=== PATIENT | female | born 2000 | race Caucasian/White ===

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

== ENCOUNTER 2021-01-11 20:40 | Emergency (ER) | payer OTHER ==
--- NOTE | 2021-01-11 21:26 | EDM.PDOC ---
ED HPI GENERAL MEDICAL PROBLEM - General Chief Complaint: General Stated Complaint: COUGH, RUNNY NOSE, EYES SWELLING Time Seen by Provider: 01/11/21 20:45 Source of Information: Reports: Patient History Limitations: Reports: No Limitations - History of Present Illness INITIAL COMMENTS - FREE TEXT/NARRATIVE: HISTORY AND PHYSICAL: History of present illness: Patient is a 21-year-old female who presents to the ED today with concern of itchy watery eyes, nasal congestion and runny nose which is on the back of her throat causing her to cough x3 days. Patient states that she also has had intermittent eyelid swelling and states that when she woke up this morning, she could not fully open her eyes because they were swollen. Patient states she took a dose of Benadryl and within 45 minutes, her eyes went back to normal. Patient states she took a nap when she woke up they were swollen again, so she took another dose of Benadryl and her eyelids went back down. Patient states that Benadryl has been improving her symptoms. Patient denies any swelling of her tongue, lips, or throat. Patient denies fever, chills, chest pain, shortness of breath. Denies headache, neck stiff ness, change in vision, syncope, or near syncope. Denies nausea, vomiting, abdominal pain, diarrhea, constipation, or dysuria. Has not noted any blood in urine or stool. Patient has been eating and drinking appropriately. Review of systems: As per history of present illness and below otherwise all systems reviewed and negative. Past medical history: As per history of present illness and as reviewed below otherwise noncontributory. Surgical history: As per history of present illness and as reviewed below otherwise noncontributory. Social history: See social history for further information Family history: As per history of present illness and as reviewed below otherwise noncontributory. Physical exam: General: Patient is alert, oriented, and in no acute distress. Patient sitting on exam table, quite tearful on exam. Vitals stable and reviewed by me. HEENT: Bilateral clear nasal drainage. No lip edema, tongue edema, or oropharyngeal edema. No stridor. Otherwise, Atraumatic, normocephalic, pupils equal and reactive bilaterally, negative for conjunctival pallor or scleral icterus, mucous membranes moist, TMs normal bilaterally, throat clear with noted postnasal drainage, uvula midline, neck supple, nontender, trachea midline. No drooling or trismus noted. No meningeal signs. No hot potato voice noted. Lungs: Clear to auscultation, breath sounds equal bilaterally, chest nontender. Heart: S1S2, regular rate and rhythm without overt murmur Abdomen: Soft, nondistended, nontender. Negative for masses or hepatosplenomegaly. Negative for costovertebral tenderness. Pelvis: Stable nontender. Genitourinary: Deferred. Rectal: Deferred. Skin: Intact, warm, dry. No lesions or rashes noted. Extremities: Atraumatic, negative for cords or calf pain. Neurovascular unremarkable. Neuro: Awake, alert, oriented. Cranial nerves II through XII unremarkable. Cerebellum unremarkable. Motor and sensory unremarkable throughout. Exam nonfocal. Notes: On exam, patient is quite tearful which is out of proportion for her stated complaints. She does have bilateral clear nasal drainage, and postnasal drip, and HPI consistent with allergic reaction; as symptoms improved with Benadryl. She is not having any lip edema, tongue edema, oropharyngeal edema, or stridor. After lengthy conversation with patient, she states that she has health anxiety so when she began having symptoms she felt really anxious which is why she is crying. Signs and symptoms that would prompt return to the ED thoroughly discussed with patient. Discussed importance for follow-up with her primary care provider. Voices understanding and is agreeable to plan of care. Denies any further questions or concerns at this time. Diagnostics: None Therapeutics: None Prescription: Medrol dose pack Impression: Allergic reaction Plan: 1. Avoid triggers. Continue to monitor for possible exposures/triggers/foods. 2. While symptomatic continue to routinely take Benadryl 50mg every 4-6 hours and Zantac 150mg twice daily. Take the Medrol dose pack as prescribed. 3. Please follow up with your Primary care provider as discussed. Return to the ED as needed and as discussed. Definitive disposition and diagnosis as appropriate pending reevaluation and review of above. eye Pain Score (Numeric/FACES): 3 - Related Data Allergies Allergy/AdvReac Type Severity Reaction Status Date / Time No Known Allergies Allergy Verified 01/11/21 20:48 Past Medical History Musculoskeletal History: Reports: Fracture - Infectious Disease History Infectious Disease History: Reports: None - Past Surgical History Cardiovascular Surgical History: Reports: Other (See Below) Other Cardiovascular Surgeries/Procedures: "murmur" open heart surgery at 1 month of age Social & Family History - Family History Family Medical History: No Pertinent Family History - Caffeine Use Caffeine Use: Reports: Coffee - Recreational Drug Use Recreational Drug Use: No ED ROS GENERAL - Review of Systems Review Of Systems: Comprehensive ROS is negative, except as noted in HPI. ED EXAM, GENERAL - Physical Exam Exam: See Below (see dictation) Course - Vital Signs Last Recorded V/S: Last Vital Signs Temp 98.0 F 01/11/21 20:49 Pulse 104 H 01/11/21 20:49 Resp 18 01/11/21 20:49 BP 141/74 H 01/11/21 20:49 Pulse Ox 97 01/11/21 20:49 Departure - Departure Time of Disposition: 21:17 Disposition: Home, Self-Care 01 Clinical Impression: Allergic reaction Qualifiers: Encounter type: initial encounter Qualified Code(s): T78.40XA - Allergy, unspecified, initial encounter - Discharge Information Referrals: PCP,None [Primary Care Provider] - Additional Instructions: The following information is given to patients seen in the emergency department who are being discharged to home. This information is to outline your options for follow-up care. We provide all patients seen in our emergency department with a follow-up referral. The need for follow-up, as well as the timing and circumstances, are variable depending upon the specifics of your emergency department visit. If you don't have a primary care physician on staff, we will provide you with a referral. We always advise you to contact your personal physician following an emergency department visit to inform them of the circumstance of the visit and for follow-up with them and/or the need for any referrals to a consulting specialist. The emergency department will also refer you to a specialist when appropriate. This referral assures that you have the opportunity for follow-up care with a specialist. All of these measure are taken in an effort to provide you with optimal care, which includes your follow-up. Under all circumstances we always encourage you to contact your private physician who remains a resource for coordinating your care. When calling for follow-up care, please make the office aware that this follow-up is from your recent emergency room visit. If for any reason you are refused follow-up, please contact the [facility] Emergency Department at and asked to speak to the emergency department charge nurse. [place] [facility] [address] [place] [address] [facility] [address] [place] [address] 1. Avoid triggers. Continue to monitor for possible exposures/triggers/foods. 2. While symptomatic continue to routinely take Benadryl 50mg every 4-6 hours and Zantac 150mg twice daily. Take the Medrol dose pack as prescribed. 3. Please follow up with your Primary care provider as discussed. Return to the ED as needed and as discussed. Sepsis Event Note (ED) - Evaluation Sepsis Screening Result: No Definite Risk - Focused Exam Vital Signs: Vital Signs Temp Pulse Resp BP Pulse Ox 01/11/21 20:49 98.0 F 104 H 18 141/74 H 97
[2021-01-11 21:52] VITALS: BP 126/67; PULSE 73
== END 2021-01-11 21:58 | disposition home or self-care (01) ==
LOC: MW.ED 20:40
DX: T78.40XA Allergy, unspecified, initial encounter (principal)
CPT/HCPCS: 99282; 99283

== ENCOUNTER 2021-05-17 09:05 | Emergency (ER) | payer OTHER ==
--- NOTE | 2021-05-17 09:07 | EDM.PDOC ---
ED HPI GENERAL MEDICAL PROBLEM - General Stated Complaint: RT ANKLE HURTT Time Seen by Provider: 05/17/21 09:05 Source of Information: Reports: Patient History Limitations: Reports: No Limitations - History of Present Illness INITIAL COMMENTS - FREE TEXT/NARRATIVE: 21-year-old female no past medical history presents for right ankle injury. Patient was walking when she sustained an inversion injury of the right ankle in a hole in the ground. Patient notes that she was intoxicated. She is noting pain in the dorsum of the ankle that is worse with range of motion and bearing weight. She was able to walk a few steps but notes a lot of pain with ambulation. She denies hitting her head or head injury. She denies loss of consciousness. She denies any other injuries. She notes bruising to the an terior ankle. Right Ankle Pain Score (Numeric/FACES): 6 - Related Data Allergies Allergy/AdvReac Type Severity Reaction Status Date / Time No Known Allergies Allergy Verified 01/11/21 20:48 Home Meds: Home Meds methylPREDNISolone [Medrol Dose Pack] 84 mg PO ASDIRECTED #1 dospk 01/11/21 [Rx] Past Medical History Musculoskeletal History: Reports: Fracture - Infectious Disease History Infectious Disease History: Reports: None - Past Surgical History Cardiovascular Surgical History: Reports: Other (See Below) Other Cardiovascular Surgeries/Procedures: "murmur" open heart surgery at 1 month of age Social & Family History - Family History Family Medical History: No Pertinent Family History - Caffeine Use Caffeine Use: Reports: Coffee ED ROS GENERAL - Review of Systems Review Of Systems: Comprehensive ROS is negative, except as noted in HPI. ED EXAM, GENERAL - Physical Exam Exam: See Below Exam Limited By: No Limitations General Appearance: Alert, WD/WN, No Apparent Distress Ears: Hearing Grossly Normal Throat/Mouth: Normal Voice, No Airway Compromise Head: Atraumatic, Normocephalic Neck: Normal Inspection Respiratory/Chest: No Respiratory Distress, Lungs Clear, Normal Breath Sounds, No Accessory Muscle Use Cardiovascular: Normal Peripheral Pulses, Regular Rate, Rhythm Extremities: Other (Ecchymosis and mild swelling to dorsum anterior ankle. Positive tenderness to palpation. No metatarsal tenderness to palpation. No medial or lateral malleolus tenderness palpation. No distal tibial tenderness to palpation. Pain with active and passive range of motion of the ankle.) Neurological: Alert, Normal Cognition Psychiatric: Normal Affect, Normal Mood Skin Exam: Warm, Dry, Intact, Normal Color Course - Vital Signs Last Recorded V/S: Last Vital Signs Temp 98.3 F 05/17/21 09:16 Pulse 76 05/17/21 09:16 Resp 16 05/17/21 09:16 BP 124/78 05/17/21 09:16 Pulse Ox 98 05/17/21 09:16 - Orders/Labs/Meds Orders: Active Orders 24 hr Category Date Time Status Tani Bandage [RC] ONETIME Care 05/17/21 09:36 Ordered Meds: Medications Discontinued Medications Generic Name Dose Route Start Last Admin Trade Name Dustin PRN Reason Stop Dose Admin Ibuprofen 600 mg 05/17/21 09:32 Ibuprofen 600 Mg Tab PO 05/17/21 09:33 ONETIME ONE Oxycodone/Acetaminophen 1 tab 05/17/21 09:32 Acetaminophen/Oxycodone 325-5 Mg Tab PO 05/17/21 09:33 ONETIME ONE - Re-Assessments/Exams Free Text/Narrative Re-Assessment/Exam: 05/17/21 09:34 We will treat patient's pain. Will get x-ray imaging of the ankle. 05/17/21 09:38 X-ray imaging unremarkable. Will Tani bandage to the affected extremity. Will discharge with crutches. Departure - Departure Time of Disposition: 09:38 Disposition: Home, Self-Care 01 Condition: Good Clinical Impression: Ankle sprain Qualifiers: Encounter type: initial encounter Involved ligament of ankle: unspecified ligament Laterality: right Qualified Code(s): S93.401A - Sprain of unspecified ligament of right ankle, initial encounter - Discharge Information Instructions: Ankle Sprain Referrals: Taye Henley MD [Primary Care Provider] - Additional Instructions: The following information is given to patients seen in the emergency department who are being discharged to home. This information is to outline your options for follow-up care. We provide all patients seen in our emergency department with a follow-up referral. The need for follow-up, as well as the timing and circumstances, are variable depending upon the specifics of your emergency department visit. If you don't have a primary care physician on staff, we will provide you with a referral. We always advise you to contact your personal physician following an emergency department visit to inform them of the circumstance of the visit and for follow-up with them and/or the need for any referrals to a consulting specialist. The emergency department will also refer you to a specialist when appropriate. This referral assures that you have the opportunity for follow-up care with a specialist. All of these measure are taken in an effort to provide you with optimal care, which includes your follow-up. Under all circumstances we always encourage you to contact your private physician who remains a resource for coordinating your care. When calling for follow-up care, please make the office aware that this follow-up is from your recent emergency room visit. If for any reason you are refused follow-up, please contact the [facility] Emergency Department at and asked to speak to the emergency department charge nurse. Please follow up with your primary care physician. If you do not have a primary care physician, see below: [facility] [address] [place] [id number] [facility] [address] [place] [phone] [facility] [address] [place] [id number] Sepsis Event Note (ED) - Focused Exam Vital Signs: Vital Signs Temp Pulse Resp BP Pulse Ox 05/17/21 09:16 98.3 F 76 16 124/78 98 - My Orders Last 24 Hours: My Active Orders 05/17/21 09:36 Tani Bandage [RC] ONETIME - Assessment/Plan Last 24 Hours: My Active Orders 05/17/21 09:36 Tani Bandage [RC] ONETIME
[2021-05-17 09:20] VITALS: BP 124/78; PULSE 76
[2021-05-17] MEDS ORDERED: Acetaminophen/oxyCODONE 325-5 MG Tab PO ONE (09:32)
[2021-05-17] MEDS ORDERED: Ibuprofen 600 MG Tab PO ONE (09:32)
--- NOTE | 2021-05-17 09:34 | CR ---
INDICATION: Right ankle injury. TECHNIQUE: Three views of the right ankle. COMPARISON: None. FINDINGS: No soft tissue swelling, fracture or other abnormality. IMPRESSION: Negative right ankle. Dictated by Jose Solorzano MD @ 05/17/2021 9:34:[address] Jose Solorzano @ May 17 2021 9:34AM
== END 2021-05-17 10:04 | disposition home or self-care (01) ==
LOC: MW.ED 09:05
DX: S93.401A Sprain of unspecified ligament of right ankle, initial encounter (principal); X50.1XXA Overexertion from prolonged static or awkward postures, initial encounter; Y93.01 Activity, walking, marching and hiking
CPT/HCPCS: 73610; 99283; A9270

== ENCOUNTER 2021-09-12 11:58 | Emergency (ER) | payer SELFPAY ==
[2021-09-12] MEDS ORDERED: Sodium Chloride 0.9% 2.5 ML Syringe FLUSH PRN (12:55)
[2021-09-12] MEDS ORDERED: diphenhydrAMINE 50 MG/ML SDV IVPUSH ONE (12:55)
[2021-09-12] MEDS ORDERED: Sodium Chloride 0.9% 1,000 ML IV ONE (12:55)
[2021-09-12] MEDS ORDERED: Sodium Chloride 0.9% 10 ML Syringe FLUSH PRN (12:55)
[2021-09-12] MEDS ORDERED: Metoclopramide 10 MG/2 ML SDV IVPUSH ONE (12:55)
[2021-09-12] MEDS ORDERED: Ketorolac 15 MG/ML SDV IVPUSH STA (12:55)
[2021-09-12] MEDS ORDERED: Acetaminophen/Butalbital/Caffeine 325-50-40 MG Tab PO ONE (12:56)
--- NOTE | 2021-09-12 13:33 | EDM.PDOC ---
ED HPI GENERAL MEDICAL PROBLEM - General Chief Complaint: Headache Stated Complaint: MIGRAINE Time Seen by Provider: 09/12/21 12:35 Source of Information: Reports: Patient History Limitations: Reports: No Limitations - History of Present Illness INITIAL COMMENTS - FREE TEXT/NARRATIVE: 21-year-old female past medical history migraine headaches presents for presumptive migraine headache. Patient states that headache began yesterday afternoon. It is diffuse and worse in her frontal head. It has gradually worsened throughout the night and today. She does believe this is the worst headache she is ever had. She did have a similar headache a few months ago. She notes nausea but no vomiting. She notes that a few days prior to this headache starting she was having sore throat and feelings of sinus congestion which she believes are improving. Denies cough or shortness of breath. Denies fevers headache Pain Score (Numeric/FACES): 7 - Related Data Allergies Allergy/AdvReac Type Severity Reaction Status Date / Time No Known Allergies Allergy Verified 09/12/21 12:46 Home Meds: Home Meds . [No Known Home Meds] 09/12/21 [History] Past Medical History HEENT History: Reports: None Cardiovascular History: Reports: Heart Murmur Respiratory History: Reports: None Gastrointestinal History: Reports: None Genitourinary History: Reports: None COMMUNICATIONS MANAGER History: Reports: None Musculoskeletal History: Reports: Fracture Neurological History: Reports: None Psychiatric History: Reports: None Endocrine/Metabolic History: Reports: None Hematologic History: Reports: None Immunologic History: Reports: None Oncologic (Cancer) History: Reports: None Dermatologic History: Reports: None - Infectious Disease History Infectious Disease History: Reports: None - Past Surgical History Head Surgeries/Procedures: Reports: None Cardiovascular Surgical History: Reports: Other (See Below) Other Cardiovascular Surgeries/Procedures: "murmur" open heart surgery at 1 month of age Musculoskeletal Surgical History: Reports: None Oncologic Surgical History: Reports: None Social & Family History - Family History Family Medical History: No Pertinent Family History - Tobacco Use Tobacco Use Status *Q: Never Tobacco User - Caffeine Use Caffeine Use: Reports: Coffee, Energy Drinks - Recreational Drug Use Recreational Drug Use: No ED ROS GENERAL - Review of Systems Review Of Systems: Comprehensive ROS is negative, except as noted in HPI. ED EXAM, GENERAL - Physical Exam Exam: See Below Exam Limited By: No Limitations General Appearance: Alert, WD/WN, No Apparent Distress Eye Exam: Bilateral Eye: EOMI, PERRL Ears: Hearing Grossly Normal Throat/Mouth: Normal Voice, No Airway Compromise Head: Atraumatic, Normocephalic Neck: Normal Inspection, Full Range of Motion Respiratory/Chest: No Respiratory Distress, Lungs Clear, Normal Breath Sounds, No Accessory Muscle Use Cardiovascular: Normal Peripheral Pulses, Regular Rate, Rhythm Extremities: Normal Inspection Neurological: Alert, CN II-XII Intact, Normal Cognition, Normal Gait, No Motor/Sensory Deficits Psychiatric: Normal Affect, Normal Mood Skin Exam: Warm, Dry, Intact, Normal Color Course - Vital Signs Last Recorded V/S: Last Vital Signs Temp 97.8 F 09/12/21 12:46 Pulse 79 09/12/21 13:44 Resp 17 09/12/21 13:44 BP 129/67 09/12/21 13:44 Pulse Ox 98 09/12/21 13:44 - Orders/Labs/Meds Orders: Active Orders 24 hr Category Date Time Status CORONAVIRUS COVID-19 CONSTANZA [MOLEC] Stat Lab 09/12/21 14:12 Ordered HCG QUALITATIVE,SERUM [CHEM] Stat Lab 09/12/21 13:59 Received Saline Lock Insert [OM.PC] Stat Oth 09/12/21 12:55 Ordered Labs: Laboratory Tests 09/12/21 09/12/21 Range/Units 13:30 13:30 WBC 9.03 (4.0-11.0) K/uL RBC 4.84 (4.30-5.90) M/uL Hgb 14.4 (12.0-16.0) g/dL Hct 42.9 (36.0-46.0) % MCV 88.6 (80.0-98.0) fL MCH 29.8 (27.0-32.0) pg MCHC 33.6 (31.0-37.0) g/dL RDW Std Deviation 39.7 (28.0-62.0) fl RDW Coeff of Michael 13 (11.0-15.0) % Plt Count 303 (150-400) K/uL MPV 10.30 (7.40-12.00) fL Neut % (Auto) 79.0 (48.0-80.0) % Lymph % (Auto) 16.1 (16.0-40.0) % Woods % (Auto) 4.7 (0.0-15.0) % Eos % (Auto) 0.0 (0.0-7.0) % Baso % (Auto) 0.2 (0.0-1.5) % Neut # (Auto) 7.1 H (1.4-5.7) K/uL Lymph # (Auto) 1.5 (0.6-2.4) K/uL Woods # (Auto) 0.4 (0.0-0.8) K/uL Eos # (Auto) 0.0 (0.0-0.7) K/uL Baso # (Auto) 0.0 (0.0-0.1) K/uL Nucleated RBC % 0.0 /100WBC Nucleated RBCs # 0 K/uL Sodium 139 (136-145) mmol/L Potassium 4.1 (3.5-5.1) mmol/L Chloride 101 (98-107) mmol/L Carbon Dioxide 25.4 (21.0-32.0) mmol/L BUN 12 (7.0-18.0) mg/dL Creatinine 0.7 (0.6-1.0) mg/dL Est Cr Clr Drug Dosing 123.63 mL/min Estimated GFR (MDRD) > 60.0 ml/min Glucose 98 (74-106) mg/dL Calcium 9.2 (8.5-10.1) mg/dL Meds: Medications Discontinued Medications Generic Name Dose Route Start Last Admin Trade Name Freq PRN Reason Stop Dose Admin Acetaminophen/Butalbital/Caffeine 1 tab 09/12/21 12:56 09/12/21 13:37 Acetaminophen/Butalbital/Caffeine 325-50-40 Mg Tab PO 09/12/21 12:57 1 tab ONETIME ONE Administration Diphenhydramine HCl 25 mg 09/12/21 12:55 09/12/21 13:37 Diphenhydramine 50 Mg/Ml Sdv IVPUSH 09/12/21 12:56 25 mg ONETIME ONE Administration Sodium Chloride 1,000 mls @ 999 mls/hr 09/12/21 12:55 09/12/21 13:34 Normal Saline IV 09/12/21 13:55 999 mls/hr .Bolus ONE Administration Ketorolac Tromethamine 15 mg 09/12/21 12:55 09/12/21 13:37 Ketorolac 15 Mg/Ml Sdv IVPUSH 09/12/21 12:56 15 mg STAT STA Administration Metoclopramide HCl 10 mg 09/12/21 12:55 09/12/21 13:36 Metoclopramide 10 Mg/2 Ml Sdv IVPUSH 09/12/21 12:56 10 mg ONETIME ONE Administration Sodium Chloride 10 ml 09/12/21 12:55 09/12/21 13:39 Sodium Chloride 0.9% 10 Ml Syringe FLUSH 10 ml ASDIRECTED PRN Administration Keep Vein Open Sodium Chloride 2.5 ml 09/12/21 12:55 09/12/21 13:38 Sodium Chloride 0.9% 2.5 Ml Syringe FLUSH 2.5 ml ASDIRECTED PRN Administration Keep Vein Open - Re-Assessments/Exams Free Text/Narrative Re-Assessment/Exam: 09/12/21 13:33 We will get basic labs. Will get head CT although I have a very low suspicion for intracranial hemorrhage. Will get Covid test considering the sore throat and sinus symptoms. Will treat symptomatically with IV fluid bolus and headache medications. 09/12/21 14:14 Patient is feeling much better after medications and IV fluid bolus. Head CT is unremarkable. I did forget to order a Covid test, so we will get a Covid test now, and I will allow the patient to leave the ER and call her back with the results. Will prescribe patient Fioricet for symptomatic relief of migraine headache. Departure - Departure Time of Disposition: 14:14 Disposition: Home, Self-Care 01 Condition: Good Clinical Impression: Migraine - Discharge Information Instructions: Migraine Headache, [id number] Referrals: PCP,None [Primary Care Provider] - Forms: ED Department Discharge Additional Instructions: Your symptoms are consistent with migraine headache. Your labs and head CT are all unremarkable. Your Covid swab is pending, but I will call you with the results later. I did send a prescription for medication called Fioricet to [facility] which is located in the [place]. You can follow-up with your primary care physician or consider seeing a neurologist if you have persistent headaches. The following information is given to patients seen in the emergency department who are being discharged to home. This information is to outline your options for follow-up care. We provide all patients seen in our emergency department with a follow-up referral. The need for follow-up, as well as the timing and circumstances, are variable depending upon the specifics of your emergency department visit. If you don't have a primary care physician on staff, we will provide you with a referral. We always advise you to contact your personal physician following an emergency department visit to inform them of the circumstance of the visit and for follow-up with them and/or the need for any referrals to a consulting specialist. The emergency department will also refer you to a specialist when appropriate. This referral assures that you have the opportunity for follow-up care with a specialist. All of these measure are taken in an effort to provide you with optimal care, which includes your follow-up. Under all circumstances we always encourage you to contact your private physician who remains a resource for coordinating your care. When calling for follow-up care, please make the office aware that this follow-up is from your recent emergency room visit. If for any reason you are refused follow-up, please contact the Emergency Department at and asked to speak to the emergency department charge nurse. Please follow up with your primary care physician. If you do not have a primary care physician, see below: [facility] [address] [place] [phone] [facility] [address] [place] [address] [facility] [address] [place] [id number] Sepsis Event Note (ED) - Evaluation Sepsis Screening Result: No Definite Risk - Focused Exam Vital Signs: Vital Signs Temp Pulse Resp BP Pulse Ox 09/12/21 13:44 79 17 129/67 98 09/12/21 12:46 97.8 F 73 16 110/66 96 - My Orders Last 24 Hours: My Active Orders 09/12/21 12:55 Saline Lock Insert [OM.PC] Stat 09/12/21 13:59 HCG QUALITATIVE,SERUM [CHEM] Stat 09/12/21 14:12 CORONAVIRUS COVID-19 CONSTANZA [MOLEC] Stat - Assessment/Plan Last 24 Hours: My Active Orders 09/12/21 12:55 Saline Lock Insert [OM.PC] Stat 09/12/21 13:59 HCG QUALITATIVE,SERUM [CHEM] Stat 09/12/21 14:12 CORONAVIRUS COVID-19 CONSTANZA [MOLEC] Stat
[2021-09-12 13:45] VITALS: BP 129/67; PULSE 79
--- NOTE | 2021-09-12 13:48 | CT ---
INDICATION: Headache. TECHNIQUE: Noncontrast CT images acquired through the brain. COMPARISON: None. FINDINGS: The ventricles and sulci are within normal limits for patient age. No mass effect or midline shift. The simons-white differentiation is maintained. No acute intracranial hemorrhage or pathologic extra-axial fluid collection. The globes are symmetric. The calvarium is intact. The visualized paranasal sinuses and mastoid air cells are clear. IMPRESSION: No acute intracranial hemorrhage or mass effect. Please note that all CT scans at this facility use dose modulation, iterative reconstruction, and/or weight-based dosing when appropriate to reduce radiation dose to as low as reasonably achievable. Dictated by Kwadwo Thakkar MD @ 09/12/2021 1:47:11 PM (Electronically Signed)
[2021-09-12 14:01] LABS: BLOOD UREA NITROGEN,BUN 12 mg/dL (7.0-18.0); CARBON DIOXIDE,CO2 25.4 mmol/L (21.0-32.0); CHLORIDE,CL 101 mmol/L (98-107); GLUCOSE RANDOM 98 mg/dL (74-106); POTASSIUM,K 4.1 mmol/L (3.5-5.1); SODIUM,NA 139 mmol/L (136-145)
== END 2021-09-12 14:29 | disposition home or self-care (01) ==
LOC: MW.ED 11:58
DX: G43.909 Migraine, unspecified, not intractable, without status migrainosus (principal); Z20.822 Contact with and (suspected) exposure to COVID-19
CPT/HCPCS: 36415; 70450; 80048; 84703; 85025; 87635; 96374; 96375; 99284; A9270; J1200; J1885; J2765; J7030; U0002

== ENCOUNTER 2024-05-10 12:25 | Emergency (ER) | payer MEDICAID ==
[2024-05-10 12:39] VITALS: BP 129/75
[2024-05-10] MEDS: Sodium Chloride 0.9% 1,000 ML IV STA (12:51)
[2024-05-10 12:52] LABS: BASOPHILS ABSOLUTE AUTO 0.03 K/uL (0.00-0.20); BASOPHILS PERCENT AUTO 0.8 % (0.0-1.0); EOSINOPHILS ABSOLUTE AUTO 0.08 K/uL (0.00-0.45); EOSINOPHILS PERCENT AUTO 2.1 % (0.0-6.0); HEMATOCRIT 40.1 % (37.0-47.0); HEMOGLOBIN 13.1 g/dL (12.0-16.0); LYMPHOCYTES ABSOLUTE AUTO 1.26 K/uL (1.00-4.80); LYMPHOCYTES PERCENT AUTO 32.6 % (24.0-44.0); MEAN CORPUSCULAR HEMOGLOBIN 27.6 pg (28.0-32.0); MEAN CORPUSCULAR HGB CONC 32.7 g/dL (32.0-36.0); MEAN CORPUSCULAR VOLUME 84.6 fL (83.0-99.0); MONOCYTES ABSOLUTE AUTO 0.42 K/uL (0.00-0.80); MONOCYTES PERCENT AUTO 10.9 % (0.0-8.0); NEUTROPHILS ABSOLUTE AUTO 2.07 K/uL (1.80-7.70); NEUTROPHILS PERCENT AUTO 53.6 % (41.0-71.0); PLATELET COUNT,PLT 270 K/uL (150-400); RED BLOOD CELL COUNT 4.74 M/uL (4.10-5.30); WHITE BLOOD CELL COUNT,WBC 3.86 K/uL (3.9-11.3)
[2024-05-10] MEDS: diphenhydrAMINE 50 MG/ML SDV IVPUSH STA (12:52)
[2024-05-10] MEDS: Magnesium Sulfate/Water 2 GM in Premix Bag 1 BAG IV STA (12:52)
[2024-05-10] MEDS: Metoclopramide 10 MG/2 ML SDV IVPUSH STA (12:53)
[2024-05-10 13:19] LABS: A/G RATIO 0.9 (0.9-1.6); ALBUMIN 3.8 g/dL (3.4-5.0); BILIRUBIN TOTAL 0.3 mg/dL (0.2-1.0); CALCIUM 9.7 mg/dL (8.5-10.1); CARBON DIOXIDE,CO2 28.7 mmol/L (21.0-32.0); CREATININE 0.8 mg/dL (0.6-1.0); EST CRCL DRUG DOSING (CG) 109.38 mL/min; POTASSIUM,K 3.9 mmol/L (3.5-5.1); PROTEIN TOTAL,TP 7.8 g/dL (6.4-8.2)
[2024-05-10 13:47] VITALS: PULSE 55
== END 2024-05-10 13:54 | disposition home or self-care (01) ==
LOC: MW.ED 12:25
DX: R51.9 Headache, unspecified (principal); Z79.899 Other long term (current) drug therapy; Z75.8 Other problems related to medical facilities and other health care
CPT/HCPCS: 36415; 80053; 84703; 85025; 96365; 96375; 99284; J1200; J2765; J3475; J7030

== ENCOUNTER 2024-10-05 21:55 | Emergency (ER) | payer MEDICAID ==
[2024-10-05] MEDS: Acetaminophen 500 MG Tab PO ONE (23:03)
[2024-10-05] MEDS: Ibuprofen 600 MG Tab PO ONE (23:03)
[2024-10-05] MEDS: Diazepam 5 MG Tab PO STA (23:03)
[2024-10-06 00:06] VITALS: BP 122/64; PULSE 57
== END 2024-10-06 00:06 | disposition home or self-care (01) ==
LOC: MW.ED 21:55
DX: G24.3 Spasmodic torticollis (principal); G44.86 Cervicogenic headache
CPT/HCPCS: 81025; 99284; A9270

== ENCOUNTER 2024-12-20 13:31 | Emergency (ER) | payer MEDICAID ==
[2024-12-20 14:08] VITALS: BP 113/66; PULSE 87
[2024-12-20] MEDS: Ondansetron 4 MG/2 ML SDV IVPUSH ONE (14:32)
[2024-12-20] MEDS: Sodium Chloride 0.9% 1,000 ML IV SCH (14:32)
[2024-12-20 14:34] LABS: BASOPHILS ABSOLUTE AUTO 0.02 K/uL (0.00-0.20); BASOPHILS PERCENT AUTO 0.2 % (0.0-1.0); EOSINOPHILS ABSOLUTE AUTO 0.04 K/uL (0.00-0.45); EOSINOPHILS PERCENT AUTO 0.5 % (0.0-6.0); HEMATOCRIT 43.8 % (37.0-47.0); HEMOGLOBIN 14.9 g/dL (12.0-16.0); IMMATURE GRAN ABSOLUTE AUTO 0.02 K/uL (0.00-0.05); IMMATURE GRAN PERCENT AUTO 0.2 % (0.0-0.4); LYMPHOCYTES ABSOLUTE AUTO 0.52 K/uL (1.00-4.80); LYMPHOCYTES PERCENT AUTO 5.9 % (24.0-44.0); MEAN CORPUSCULAR HEMOGLOBIN 29.4 pg (28.0-32.0); MEAN CORPUSCULAR VOLUME 86.6 fL (83.0-99.0); MONOCYTES ABSOLUTE AUTO 0.52 K/uL (0.00-0.80); MONOCYTES PERCENT AUTO 5.9 % (0.0-8.0); NEUTROPHILS ABSOLUTE AUTO 7.71 K/uL (1.80-7.70); NEUTROPHILS PERCENT AUTO 87.3 % (41.0-71.0); PLATELET COUNT,PLT 250 K/uL (150-400); RED BLOOD CELL COUNT 5.06 M/uL (4.10-5.30); WHITE BLOOD CELL COUNT,WBC 8.83 K/uL (3.9-11.3)
[2024-12-20 15:07] LABS: ALBUMIN 4.1 g/dL (3.4-5.0); BILIRUBIN TOTAL 0.7 mg/dL (0.2-1.0); CALCIUM 8.9 mg/dL (8.5-10.1); CARBON DIOXIDE,CO2 21.8 mmol/L (21.0-32.0); CREATININE 0.7 mg/dL (0.6-1.0); EST CRCL DRUG DOSING (CG) 124.23 mL/min; PROTEIN TOTAL,TP 8.1 g/dL (6.4-8.2)
== END 2024-12-20 15:48 | disposition home or self-care (01) ==
LOC: MW.ED 13:31
DX: E86.0 Dehydration (principal); Z79.899 Other long term (current) drug therapy
CPT/HCPCS: 36415; 80053; 85025; 93005; 96361; 96374; 99284; J2405; J7030

== ENCOUNTER 2025-07-04 23:17 | Emergency (ER) | payer SELFPAY ==
[2025-07-05 01:30] VITALS: BP 116/70; PULSE 82
== END 2025-07-05 01:30 | disposition home or self-care (01) ==
LOC: MW.ED 23:17
DX: J02.9 Acute pharyngitis, unspecified (principal)
CPT/HCPCS: 99283; A9270